=== PATIENT | male | born 1985 | race Caucasian/White ===

== ENCOUNTER → 2021-11-13 08:05 | Outpatient (CLI) | payer OTHER, SELFPAY ==
--- NOTE | 2021-11-13 | DI.RAD.S_ITS ---
PROCEDURE: FL SHOULDER INJECTION MR/CT RT INDICATIONS: Impingement syndrome of right shoulder COMPARISON: None. TECHNIQUE: The indications, alternatives, benefits, risks, and complications of the procedure were explained to the patient. Written informed consent was obtained and placed in the chart. The shoulder was examined fluoroscopically and a site for needle placement chosen for entry into the glenohumeral joint from an anterior approach. The skin was prepped and draped in a sterile fashion, and 1% lidocaine infiltrated from skin down to joint capsule. A spinal needle was inserted into the glenohumeral joint, and a small amount of iodinated contrast media injected to confirm intra-articular placement of the needle tip. This was followed by approximately 12 mL dilute solution of a gadolinium containing MR contrast agent. The needle was removed and a dressing was applied. The patient was given postprocedural instructions and sent to the MR suite for MR imaging. FINDINGS: A single fluoroscopic spot image demonstrates intra-articular location of injected iodinated contrast. IMPRESSION: Successful fluoroscopically guided administration of dilute Gadolinium solution into the shoulder joint for MR arthrogram. Dictated by: Woodrow Lowry M.D. on 11/13/2021 at 9:08 Approved by: Woodrow Lowry M.D. on 11/13/2021 at 9:08
--- NOTE | 2021-11-13 | DI.MRI.S_ITS ---
PROCEDURE: MR SHOULDER RT W CON INDICATIONS: Impingement syndrome of right shoulder TECHNIQUE: After the administration of 12 mL of dilute intra-articular Gadolinium contrast, oblique coronal T1 and T2 spin echo with fat saturation, oblique sagittal T1 spin echo with and without fat saturation, oblique sagittal T2 fast spin echo with fat saturation, axial T1 spin echo with fat saturation through the shoulder. COMPARISON: None. FINDINGS: Image quality: Excellent. Rotator cuff: Mild supraspinatus tendinopathy with interstitial tears. Mild infraspinatus tendinopathy with interstitial and small, partial articular surface tear. The subscapularis tendon is unremarkable. No rotator cuff muscle atrophy on sagittal images. Bones and bursae: No bone marrow contusions or fractures. No acromioclavicular joint degeneration. The acromion demonstrates conventional anatomy, without an os acromiale. Capsule and soft tissues: Superior labral tear at the biceps attachment. The long head of the biceps tendon otherwise demonstrates normal location and morphology. The rotator interval appears normal, without fibrosis. The coracohumeral ligament is of normal thickness. No intra-articular bodies. IMPRESSION: 1. Superior labral tear at the biceps attachment. 2. Supraspinatus tendinopathy with interstitial tears. 3. Infraspinatus tendinopathy with interstitial and small, partial articular surface tear. Dictated by: Nirmal De Santiago M.D. on 11/13/2021 at 10:15 Approved by: Nirmal De Santiago M.D. on 11/13/2021 at 10:17
== END ==
PROVIDERS: Referring Provider Student in an Organized Health Care Education/Training Program; Visit Provider Student in an Organized Health Care Education/Training Program
DX: M75.111 Incomplete rotator cuff tear or rupture of right shoulder, not specified as traumatic (principal); S43.491A Other sprain of right shoulder joint, initial encounter; M75.40 Impingement syndrome of unspecified shoulder
CPT/HCPCS: 23350; 73222; 77002

== ENCOUNTER 2022-07-29 09:35 | Emergency (ER) | payer OTHER, SELFPAY ==
[2022-07-29 09:43] VITALS: BP 133/73; PULSE 62; RESP 16; TEMP 36.6; O2SAT 99; BMI 36.6
--- NOTE | 2022-07-29 09:50 | DI.RAD.S_ITS ---
PROCEDURE: XR HAND LT MIN 3V INDICATIONS: injury to ring and pinky finger TECHNIQUE: 3 views of the hand(s) acquired. COMPARISON: None. FINDINGS: Bones: Mildly displaced, comminuted shaft fracture of proximal phalanx of small finger. Carpal bones are normally aligned. No suspicious bony lesions. Soft tissues: No suspicious soft tissue calcifications. IMPRESSION: Comminuted, mildly displaced shaft fracture of the proximal phalanx of the small finger. Dictated by: Kennedy Castro M.D. on 07/29/2022 at 10:31 Approved by: Kennedy Castro M.D. on 07/29/2022 at 10:33
--- NOTE | 2022-07-29 09:50 | DI.RAD.S_ITS ---
PROCEDURE: XR SHOULDER RT MIN 2V INDICATIONS: Skiing injury TECHNIQUE: 3 views of the shoulder were acquired. COMPARISON: None. FINDINGS: Bones: No fractures or dislocations. There is widening of the distance between the acromion and clavicle, possibly representing AC joint separation. No suspicious bony lesions. Visualized ribs appear intact. Soft tissues: No suspicious soft tissue calcifications. IMPRESSION: Question AC joint separation. Consider AC joint study with and without weight-bearing Dictated by: Kennedy Castro M.D. on 07/29/2022 at 10:30 Approved by: Kennedy Castro M.D. on 07/29/2022 at 10:31
--- NOTE | 2022-07-29 09:56 | ED_ITS ---
HPI - Extremity Injury (Upper) General Chief Complaint: Extremity Injury, Upper Stated Complaint: lt pink pain, rt shldr pain ski Time Seen by Provider: 07/29/22 09:48 Mode of arrival: Family Vehicle History of Present Illness HPI narrative: Patient is a 37-year-old healthy male who presents with right shoulder pain and left hand pain. 2 nights ago he was eat night [place] did not see a ledge went over it landed mostly on his right shoulder. He feels like his right trap has been hurting. He was wearing a helmet he did not lose consciousness. He has no neck pain. No numbness tingling or weakness. No nausea or vomiting. No chest pain. No other complaints at this time. He has an obvious left pinky deformity. No pelvic pain. Related Data Previous Rx's Medication Instructions Recorded cyclobenzaprine 5 mg tablet 5 mg PO TID PRN muscle spasm #10 07/29/22 tabs Allergies Allergy/AdvReac Type Severity Reaction Status Date / Time No Known Drug Allergies Allergy Verified 07/29/22 09:49 Review of Systems Review of Systems ROS Unobtainable: All systems reviewed & are unremarkable except as noted in HPI and below Patient History Social History Smoking Status: Never smoker Smoking Status: Never smoker alcohol intake frequency: a few times a week Substance Use Type: does not use Exam Initial Vital Signs Initial Vital Signs: Vital Signs Temperature 97.8 F 07/29/22 09:43 Pulse Rate 62 07/29/22 09:43 Respiratory Rate 16 07/29/22 09:43 Blood Pressure 133/73 07/29/22 09:43 Pulse Oximetry 99 07/29/22 09:43 Oxygen Delivery Method 07/29/22 09:43 GENERAL: Alert well-appearing 37-year-old male HEENT: Head atraumatic,EOMI, pupils reactive, face symmetric, [moist] mucous membranes NECK: No vertebral tenderness no step-off full range of motion CARDIOVASCULAR: Regular rate and rhythm without murmurs, rubs or gallops. RESPIRATORY: Breath sounds equal bilaterally, no wheezes rales or rhonchi. EXTREMITIES: Normal range of motion, no clubbing or edema. Neurovascularly intact Right shoulder no obvious clavicle step-off or AC separation. Good flexion extension decreased abduction good adduction. Sensation over deltoid intact good distal radial pulse strength equal in right hand Left hand obvious 5th finger done for Medi on able to completely flex there is swelling and contusion. Distal radial pulse intact good cap refill NEUROLOGICAL: Alert and oriented x4.Normal gait and speech. [employer] strength equal bilaterally SKIN: Warm, dry, no laceration, no petechiae, no rashes or lesions. Course Orders Ordered: ED Orders 07/29/22 09:50 XR hand LT min 3V Stat XR shoulder RT min 2V Stat Discontinued Medications Ibuprofen (Ibuprofen 400 Mg Tablet) 800 mg PO NOW ONE Stop: 07/29/22 12:26 Last Admin: 07/29/22 12:25 Dose: 800 mg Documented By: CINTIA Vital Signs Vital signs: Vital Signs - 8 hr 07/29/22 12:29 Temperature 98 F Pulse Rate 75 Respiratory Rate 18 Blood Pressure 120/75 Pulse Oximetry 98 Oxygen Delivery Method Room Air MDM - Extremity Injury (Upper) Imaging Data Extremity x-ray #1: Radiologist's Impression: Signed Patient: Robinson Gauthier MR#: [id number] : 1985 Acct:[id number] Age/Sex: 37 / M Date of Service: 07/29/22 Loc: ED Accession Number: [id number] ?? Procedure: XR hand LT min 3V Ordering Provider: Loraine Field D.O. PROCEDURE:? XR HAND LT MIN 3V ? INDICATIONS:? injury to ring and pinky finger ? TECHNIQUE:? 3 views of the hand(s) acquired.? ? COMPARISON:? None. ? FINDINGS:? ? Bones:? Mildly displaced, comminuted shaft fracture of proximal phalanx of small finger.? Carpal bones are normally aligned.? No suspicious bony lesions.? ? Soft tissues:? No suspicious soft tissue calcifications.? ? ? IMPRESSION:? Comminuted, mildly displaced shaft fracture of the proximal phalanx of the small finger. ? ? Dictated by: Kennedy Castro M.D. on 07/29/2022 at 10:31 ? Extremity x-ray #2: Radiologist's Impression: Signed Patient: Robinson Gauthier MR#: [id number] : 1985 Acct:[id number] Age/Sex: 37 / M Date of Service: 07/29/22 Loc: ED Accession Number: [id number] ?? Procedure: XR shoulder RT min 2V Ordering Provider: Loraine Field D.O. PROCEDURE:? XR SHOULDER RT MIN 2V ? INDICATIONS:? Skiing injury ? TECHNIQUE:? 3 views of the shoulder were acquired.? ? COMPARISON:? None. ? FINDINGS:? ? Bones:? No fractures or dislocations.? There is widening of the distance between the acromion and clavicle, possibly representing AC joint separation.? No suspicious bony lesions.? Visualized ribs appear intact.? ? Soft tissues:? No suspicious soft tissue calcifications.? ? IMPRESSION:? Question AC joint separation.? Consider AC joint study with and without weight-bearing ? ? Dictated by: Kennedy Castro M.D. on 07/29/2022 at 10:30 ? ? Approved by: Kennedy Castro M.D. on 07/29/2022 at 10:31 ? MDM Narrative Medical decision making narrative: Patient is a 37-year-old male who had ski related injury 2 days ago. He has an obvious deformity to his left pinky confirmed by x-ray with a fractured proximal phalanx. Good cap refill. Shoulders intact. He does not have any head injury signs or symptoms. No need for any further imaging at this time. Finger is splinted recommend follow-up with orthopedics. MDM * differential diagnosis includes but not limited to: Fracture sprain contusion * Prior records reviewed: No * My lab interpretation: No * My imaging interpretation: Fractured 5th proximal finger as above * Clinical Decision Rules/Scores evaluated: No * Independent discussions with: No one * Social Considerations: No * Shared Decision Making: Patient and *Disposition: see below, along with detailed discharge instructions that have been reviewed with patient as well as indications for ED re-evaluation and additional outpatient follow up Discharge Plan Departure Patient Disposition: Home Clinical Impression: Closed fracture of phalanx of left little finger Acromioclavicular joint separation Qualifiers: Encounter type: initial encounter Laterality: right Qualified Code(s): S43.101A - Unspecified dislocation of right acromioclavicular joint, initial encounter Instructions: Finger Fracture, AC Joint Separation Activity Restrictions/Additional Instructions: *You have been diagnosed with left little finger fracture and right AC separation *What to do: At this time keep finger splinted at all times. You will need to follow-up with orthopedics he is occasionally do get surgery. Elevate and ice as needed. *Continue to take medications as directed Flexeril 5 mg every 8 hours if needed for muscle spasm this does cause drowsiness use with caution Motrin 600 mg every 6 hours if needed for [id number] pain Tylenol 1000 mg every 6 hours if needed for [id number]-[id number] pain *Follow up with your primary care provider in 2-3 days or call [phone] *Return to ER if you should have increasing numbness tingling swelling pain or any new, worsening or concerning symptoms Prescriptions: New cyclobenzaprine 5 mg tablet 5 mg PO TID PRN (Reason: muscle spasm) Qty: 10 0RF Referrals: ProviderTonia [Primary Care Provider] - Stand Alone Forms: Patient Portal/API
[2022-07-29] MEDS: IBUPROFEN 400 MG TABLET 800 MG PO (12:25)
[2022-07-29 12:29] VITALS: BP 120/75; PULSE 75; RESP 18; TEMP 36.6; O2SAT 98
== END 2022-07-29 12:29 | disposition home or self-care (01) ==
PROVIDERS: Emergency Provider Emergency Medicine
DX: S62.617A Displaced fracture of proximal phalanx of left little finger, initial encounter for closed fracture (principal); S43.101A Unspecified dislocation of right acromioclavicular joint, initial encounter; W17.89XA Other fall from one level to another, initial encounter; Y93.23 Activity, snow (alpine) (downhill) skiing, snowboarding, sledding, tobogganing and snow tubing
CPT/HCPCS: 73030; 73130; 99283

== ENCOUNTER → 2024-02-12 08:49 | Outpatient (CLI) | payer OTHER, SELFPAY ==
--- NOTE | 2024-02-12 08:53 | DI.MRI.S_ITS ---
PROCEDURE: MR KNEE RT WO CON INDICATIONS: RIGHT KNEE INJURY W SUSP.MENISCAL TEAR TECHNIQUE: Noncontrast sagittal PD fast spin echo and T2 fast spin echo with fat saturation, sagittal 3-D FLASH with fat saturation; coronal T1 spin echo and PD fast spin echo with fat saturation, and axial PD fast spin echo with fat saturation through the knee. COMPARISON: None. FINDINGS: Image quality: Diagnostic Menisci: Medial: Complex primarily horizontal and oblique tear of the medial meniscus, extending to the inferior articulating surface and the root. The root is still attached. Lateral: Tiny horizontal tear versus degenerative surface fibrillation at the periphery. Cruciate ligaments: Intact Medial structures: MCL: Intact Pes anserine tendons: Intact Semimembranosus: Intact Lateral structures: LCL: Intact Biceps femoris: Mild insertional tendinopathy IT band: Intact Popliteus tendon: Intact Anterior structures: Extensor mechanism: Intact Fat pads: Mild prepatellar and Hoffa's fat pad edema Medial retinaculum: Intact. Trochlea: Unremarkable morphology. Bone and joint: Bones: No fracture, dislocation, or suspicious edema Cartilage: Mild surface heterogeneity without significant defect. Joint space: Small joint effusion Ching's cyst: None Soft tissues: No significant vascular or other soft tissue pathology. IMPRESSION: Complex medial meniscus tear. Intact collateral and cruciate ligaments. Small joint effusion and mild edema in the prepatellar space and Hoffa's fat pad. Dictated by: Henri Covarrubias M.D. on 02/13/2024 at 9:09 Approved by: Henri Covarrubias M.D. on 02/13/2024 at 9:12
== END ==
PROVIDERS: Referring Provider Student in an Organized Health Care Education/Training Program; Visit Provider Student in an Organized Health Care Education/Training Program
DX: S83.231A Complex tear of medial meniscus, current injury, right knee, initial encounter (principal); S89.91XA Unspecified injury of right lower leg, initial encounter; M25.461 Effusion, right knee; X58.XXXA Exposure to other specified factors, initial encounter
CPT/HCPCS: 73721

== ENCOUNTER 2024-07-18 19:28 | Emergency (ER) | payer OTHER, SELFPAY ==
[2024-07-18] VITALS (10 sets, daily range): BP systolic 136–156; BP diastolic 67–96; PULSE 59–73; RESP 14–22; TEMP 36.6–36.8; O2SAT 93–98; BMI 35.2
--- NOTE | 2024-07-18 19:41 | EKG_ITS ---
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
--- NOTE | 2024-07-18 19:41 | DI.RAD.S_ITS ---
PROCEDURE: XR CHEST 1V INDICATIONS: chest pain TECHNIQUE: One view of the chest was acquired. COMPARISON: None. FINDINGS: Surgical changes and devices: None. Lungs and pleura: Lung volumes are slightly low, but otherwise lungs are clear. No pleural effusions or pneumothorax. Mediastinum: Mediastinal contours appear normal. Heart size is normal. Bones and chest wall: No suspicious bony lesions. Overlying soft tissues appear unremarkable. IMPRESSION: Slightly low lung volumes, but otherwise lungs are clear. Approved by: Hafsa Escudero M.D.,Ph.D. on 07/18/2024 at 20:11
--- NOTE | 2024-07-18 19:59 | PC.NURSE ---
pt states he was walking up the stairs when he started having c/o and just didn't feel right states he told his I feel like if I go to sleep tonight I will not wake up pt states he has never felt this way before does not have any hx, pain does not radiate pt also c/o sob, pt speaking in complete sentences resp even and unlabored with no distress noted
[2024-07-18] MEDS: ASPIRIN 81 MG CHEW TAB 324 MG PO (20:00)
[2024-07-18 20:15] LABS: Alanine Aminotransferase 129 IU/L (<50); Albumin 4.9 g/dL (3.5-5.0); Albumin Globulin Ratio 1.6 (1.0-2.8); Alkaline Phosphatase 56 U/L (38-126); Aspartate Aminotransferase 93 IU/L (17-59); BUN Creatinine Ratio 13.4 (6-22); Bilirubin Total 0.8 mg/dL (0.2-1.3); Blood Urea Nitrogen 15 mg/dL (9-20); Calcium 9.5 mg/dL (8.4-10.2); Carbon Dioxide 30 mmol/L (22-32); Chloride 99 mmol/L (98-107); Creatine Kinase 271 U/L (55-170); Estimated Glomerular Filt Rate > 60 mL/min (>60); Globulin 3.1 g/dL (1.7-4.1); Glucose 112 mg/dL (70-100); HEMOLYSIS 19 (0-50); Lipase 233 U/L (23-300); Magnesium 1.7 mg/dL (1.6-2.3); Potassium 3.9 mmol/L (3.4-5.1); Sodium 135 mmol/L (137-145)
[2024-07-18 20:19] LABS: Add Manual Diff / Slide Review NO; Basophils Absolute Auto 100 /uL (0-100); Basophils Percent Auto 0.9 % (0-2); Eosinophils Absolute Auto 100 /uL (0-450); Eosinophils Percent Auto 1.4 % (2-4); Hematocrit 43.7 % (41-53); Hemoglobin 15.3 g/dL (13.5-17.5); Lymphocytes Absolute Auto 2000 /uL (1100-4500); Lymphocytes Percent Auto 25.1 % (25-40); Mean Corpuscular HGB Conc 34.9 % (30-36); Mean Corpuscular Hemoglobin 30.2 PG (26-34); Mean Corpuscular Volume 86.3 fL (80-100); Monocytes Absolute Auto 700 /uL (0-900); Monocytes Percent Auto 8.4 % (3-14); Neutrophils Absolute Auto 5100 /uL (1500-7000); Neutrophils Percent Auto 64.2 % (50-75); Platelet Count 202 X10^3/uL (150-400); Red Blood Cell Count 5.06 X10^6/uL (4.5-5.9); Red Cell Distribution Width 13.5 % (11.6-14.8); White Blood Cell Count 7.9 X10^3/uL (4.5-11.0)
[2024-07-18 20:22] LABS: Prothrombin Time 11.3 SECONDS (9.4-12.5)
[2024-07-18 20:25] LABS: PTT Partial Thromboplastin Tim 33 SECONDS (25.1-36.5)
[2024-07-18 20:26] LABS: NT-proBNP (BNP-Adult 18+) < 20 pg/mL (<125); Troponin I < 0.012 ng/mL (0.01-0.034)
--- NOTE | 2024-07-18 20:39 | ED.CHESTPAIN ---
HPI - Chest Pain General Chief Complaint: Chest Pain Stated Complaint: sob, tightness in chest Time Seen by Provider: 07/18/24 19:42 Source: patient Mode of arrival: Family Vehicle Limitations: no limitations History of Present Illness HPI narrative: Patient is a 39-year-old male who is here for evaluation when he describes as tightness in his chest and shortness of breath. No cough. No fevers. No chest pain. No nausea vomiting or abdominal pain. No lower extremity swelling. Symptoms have been present for the past 12-24 hours. No recent travel. He states that it just feels like he can take a deep breath. Related Data Previous Rx's Medication Instructions Recorded cyclobenzaprine 5 mg tablet 5 mg PO TID PRN muscle spasm #10 07/29/22 tabs Allergies Allergy/AdvReac Type Severity Reaction Status Date / Time No Known Drug Allergies Allergy Verified 07/18/24 19:50 Review of Systems Review of Systems ROS Unobtainable: All systems reviewed & are unremarkable except as noted in HPI and below Patient History Social History Smoking Status: Never smoker Smoking Status: Never smoker alcohol intake frequency: a few times a week Exam Initial Vital Signs Initial Vital Signs: Vital Signs Temperature 98.3 F 07/18/24 19:39 Pulse Rate 70 07/18/24 19:39 Respiratory Rate 16 07/18/24 19:39 Blood Pressure 156/91 H 07/18/24 19:39 Pulse Oximetry 98 07/18/24 19:39 Oxygen Delivery Method Room Air 07/18/24 19:39 Const General: cooperative, comfortable and No ill appearing [facility] Head: normal to inspection and normocephalic Resp Effort & Inspection: normal respiratory effort, no cough and not tachypneic Auscultation: clear to auscultation bilaterally, no rhonchi and no wheezes Cardio Rate: regular rate Rhythm: regular rhythm GI Inspection: normal to inspection Skin General: no rashes or lesions noted Neuro General: patient alert, patient awake and moves all extremities Extrem General: normal to inspection Scores PERC Score Age greater than or equal to 50 years: No Heart rate greater than or equal to 100 bpm: No Room Air O2 Sat less than 95%: No Unilateral leg swelling: No Recent trauma or surgery: No Hemoptysis: No Prior PE or DVT: No Hormone Use: No Total PERC Score: 0 Course Orders Ordered: ED Orders 07/18/24 19:41 XR chest 1V Stat EKG-12 Lead Stat 07/18/24 19:50 Complete Blood Count AUTO DIFF Stat Comprehensive Metabolic Panel Stat Lipase Stat Magnesium Stat NT-proBNP (BNP-Adult 18+) Stat PTT Partial Thromboplastin Franko Stat Prothrombin Time INR Stat Troponin & CK Cardiac Panel Stat 07/18/24 20:55 Covid-19 + FLU A/B + RSV - PCR Stat Discontinued Medications Aspirin (Aspirin 81 Mg Chew Tab) 324 mg PO NOW ONE Stop: 07/18/24 19:42 Last Admin: 07/18/24 20:00 Dose: 324 mg Documented By: Vital Signs Vital signs: Vital Signs - 8 hr 07/18/24 19:39 07/18/24 19:44 07/18/24 19:45 Temperature 98.3 F Pulse Rate 70 70 Respiratory Rate 16 Blood Pressure 156/91 H 156/91 H Pulse Oximetry 98 98 Oxygen Delivery Method Room Air 07/18/24 19:47 07/18/24 19:47 07/18/24 20:00 Temperature Pulse Rate 73 66 Respiratory Rate 14 19 Blood Pressure 156/96 H Pulse Oximetry 98 96 Oxygen Delivery Method 07/18/24 20:00 07/18/24 20:30 07/18/24 21:00 Temperature Pulse Rate 70 61 Respiratory Rate 17 Blood Pressure 147/83 H Pulse Oximetry 93 95 Oxygen Delivery Method 07/18/24 21:30 07/18/24 22:00 07/18/24 22:09 Temperature 97.9 F Pulse Rate 59 L 68 Respiratory Rate 15 22 Blood Pressure 136/67 Pulse Oximetry 94 95 Oxygen Delivery Method MDM - Chest Pain Lab Data Attestation: I reviewed the patient's lab results. 07/18/24 19:50 07/18/24 19:50 Labs: Lab Results 07/18/24 07/18/24 Range/Units 19:50 20:55 WBC 7.9 (4.5-11.0) X10^3/uL RBC 5.06 (4.5-5.9) X10^6/uL Hgb 15.3 (13.5-17.5) g/dL Hct 43.7 (41-53) % MCV 86.3 (80-100) fL MCH 30.2 (26-34) PG MCHC 34.9 (30-36) % RDW 13.5 (11.6-14.8) % Plt Count 202 (150-400) X10^3/uL Neut % (Auto) 64.2 (50-75) % Lymph % (Auto) 25.1 (25-40) % [place]eman % (Auto) 8.4 (3-14) % Eos % (Auto) 1.4 L (2-4) % Baso % (Auto) 0.9 (0-2) % Neut # (Auto) 5100 (2341-1292) /uL Lymph # (Auto) 2000 (1561-8969) /uL [place]eman # (Auto) 700 (0-900) /uL Eos # (Auto) 100 (0-450) /uL Baso # (Auto) 100 (0-100) /uL PT 11.3 (9.4-12.5) SECONDS INR 1.0 (0.9-1.3) APTT 33 (25.1-36.5) SECONDS Sodium 135 L (137-145) mmol/L Potassium 3.9 (3.4-5.1) mmol/L Chloride 99 (98-107) mmol/L Carbon Dioxide 30 (22-32) mmol/L BUN 15 (9-20) mg/dL Creatinine 1.12 (0.66-1.25) mg/dL Estimated GFR > 60 (>60) mL/min BUN/Creatinine Ratio 13.4 (6-22) Glucose 112 H (70-100) mg/dL Calcium 9.5 (8.4-10.2) mg/dL Magnesium 1.7 (1.6-2.3) mg/dL Total Bilirubin 0.8 (0.2-1.3) mg/dL AST 93 H (17-59) IU/L ALT 129 H (<50) IU/L Alkaline Phosphatase 56 (38-126) U/L Total Creatine Kinase 271 H (55-170) U/L Troponin I < 0.012 (0.01-0.034) ng/mL NT-Pro-B Natriuret Pep < 20 (<125) pg/mL Total Protein 8.0 (6.3-8.2) g/dL Albumin 4.9 (3.5-5.0) g/dL Globulin 3.1 (1.7-4.1) g/dL Albumin/Globulin Ratio 1.6 (1.0-2.8) Lipase 233 (23-300) U/L SARS-CoV-2 (PCR) Negative (Negative) Influenza A (RT-PCR) Flu a negative (NEGATIVE) Influenza B (RT-PCR) Flu b negative (NEGATIVE) RSV (PCR) Negative (Negative) Urine Dip Bedside Urine Glucose Negative Bedside Urine Bilirubin - Negative Bedside Urine Ketone - Negative Urine Specific [place] 1.010 Bedside Urine Occult Blood - Negative Bedside Urine pH 6.5 Bedside Urine Protein - Negative Bedside Urine Urobilinogen - Negative Bedside Urine Nitrite - Negative Bedside Urine Leukocytes - Negative Esterase Imaging Data Chest x-ray: Radiologist's Impression: PROCEDURE: XR CHEST 1V INDICATIONS: chest pain TECHNIQUE: One view of the chest was acquired. COMPARISON: None. FINDINGS: Surgical changes and devices: None. Lungs and pleura: Lung volumes are slightly low, but otherwise lungs are clear. No pleural effusions or pneumothorax. Mediastinum: Mediastinal contours appear normal. Heart size is normal. Bones and chest wall: No suspicious bony lesions. Overlying soft tissues appear unremarkable. IMPRESSION: Slightly low lung volumes, but otherwise lungs are clear. ECG Data Attestation: I personally reviewed and interpreted this ECG as follows: Interpretation: Sinus rhythm Ventricular rate is 70 Normal axis Normal QRS Normal QTC Nonspecific ST T wave changes MDM Narrative Medical decision making narrative: Chest x-ray does not show any signs of pneumonia. PERC score is negative. Low suspicion for ACS. COVID/flu negative. No other indication this is an infection. Patient was not hypoxic. Not tachypneic. Not tachycardic. He was not in heart failure. I discussed all this with the patient. Provided reassurance and will hold on further workup in the emergency department for now. He was given return precautions and follow-up instructions. He expressed understanding and agreement with the plan. Discharge Plan Departure Patient Disposition: Home Clinical Impression: Shortness of breath Instructions: DI for Shortness of Breath Activity Restrictions/Additional Instructions: Your workup here in the emergency department is very reassuring. Recommend that you contact your primary care doctor for a follow-up. Return to the emergency department for new symptoms. Prescriptions: No Action cyclobenzaprine 5 mg tablet 5 mg PO TID PRN (Reason: muscle spasm) Qty: 10 0RF Referrals: ProviderTonia [Primary Care Provider] - Stand Alone Forms: Patient Portal/API/Survey
[2024-07-18 21:47] LABS: Influenza A - CEPHEID Flu A NEGATIVE (NEGATIVE); Influenza B - CEPHEID Flu B NEGATIVE (NEGATIVE); Respiratory Syncytial Virus Negative (Negative)
[2024-07-18 21:49] LABS: COVID-19 CEPHEID 4-PLEX PCR Negative (Negative)
== END 2024-07-18 22:11 | disposition home or self-care (01) ==
PROVIDERS: Emergency Provider Emergency Medicine
DX: R06.02 Shortness of breath (principal); R07.9 Chest pain, unspecified
CPT/HCPCS: 0241U; 36415; 71045; 80053; 81003; 82550; 83690; 83735; 83880; 84484; 85025; 85610; 85730; 93005; 99284

== ENCOUNTER → 2024-12-21 17:13 | Outpatient (CLI) | payer OTHER, SELFPAY ==
--- NOTE | 2024-12-21 17:15 | DI.MRI.S_ITS ---
PROCEDURE: MR ELBOW RT WO CON INDICATIONS: RT ELBOW PAIN TECHNIQUE: Noncontrast coronal proton density fast spin echo and T2 fast spin echo with fat saturation, axial and sagittal T1 spin echo and T2 fast spin echo with fat saturation through the elbow. COMPARISON: None. FINDINGS: Image quality: Excellent. Lateral structures: The lateral ulnar collateral ligament and radial collateral ligament both appear intact. Mild tendinosis of the common extensor tendon origin, without tear. Medial structures: The ulnar collateral ligament appears intact. The overlying common flexor tendon appears normal. The ulnar nerve appears normal in size and signal within the cubital tunnel. Anterior structures: Full-thickness tear of the distal biceps tendon at the radial tuberosity, with 7.5 cm superior tendon retraction, to the level of the distal humerus. The distal biceps tendon is redundant and quad at the level of the distal humerus. The brachialis tendon is intact. The median and radial neurovascular bundles appear normal; no focal muscle atrophy to suggest nerve impingement. Posterior structures: The conjoint triceps tendon from the long and lateral heads appears intact. The medial head of the triceps tendon also appears normal, with direct muscle insertion onto the olecranon. No olecranon bursal fluid. Bone and cartilage: No bone marrow contusions or fractures. No osteochondral injuries. IMPRESSION: 1. Full-thickness tear of the distal biceps tendon at the radial tuberosity, with marked superior tendon retraction to the level of the distal humerus. 2. Mild tendinosis of the common extensor tendon origin, without tear. Dictated by: Michelle Pate M.D. on 12/22/2024 at 11:27 Approved by: Michelle Pate M.D. on 12/22/2024 at 11:34
== END ==
LOC: MRI 17:13
PROVIDERS: Referring Provider Student in an Organized Health Care Education/Training Program; Visit Provider Student in an Organized Health Care Education/Training Program
DX: S46.211A Strain of muscle, fascia and tendon of other parts of biceps, right arm, initial encounter (principal); X58.XXXA Exposure to other specified factors, initial encounter
CPT/HCPCS: 73221

== ENCOUNTER 2025-03-26 09:21 | Emergency (ER) | payer OTHER, SELFPAY ==
[2025-03-08 19:27] VITALS: BMI 29.2
[2025-03-26 09:31] VITALS: BP 155/72; PULSE 70; RESP 16; TEMP 36.7; O2SAT 98; BMI 36.8
--- NOTE | 2025-03-26 09:37 | ED_ITS ---
HPI - Skin/Abscess/Foreign Bdy General Chief complaint: Extremity Injury, Upper Stated complaint: infection in hand, abx finished, swelling returned Time Seen by Provider: 03/26/25 09:35 Source: patient Mode of arrival: Ambulatory Limitations: no limitations History of Present Illness HPI narrative: Patient is a 39-year-old male presents with right index finger redness and swelling. Patient initially March 08 after he had gotten poked by a rhonda fishing hook, he was seen and evaluated started on doxycycline, came back as he had increased swelling was admitted for 4 days evaluated by ortho had MRI and CT done ultimately discharged home on doxycycline and Levaquin for 1 week. He finished those 5 days ago. Last night he felt it get a little bit more swollen this morning he notes that it is swollen and red but significantly better than what it was. He still has full range of movement no streaking. He has no significant pain he just wants to get started back on antibiotics. Related Data Previous Rx's ?Medication ?Instructions ?Recorded oxycodone 5 mg tablet 5 mg PO BID PRN pain #6 tabs 03/11/25 doxycycline hyclate 100 mg capsule 100 mg PO BID #14 c aps 03/26/25 levofloxacin 750 mg tablet 750 mg PO DAILY 7 days #7 t abs 03/26/25 Allergies Allergy/AdvReac Type Severity Reaction Status Date / Time vancomycin AdvReac Mild ITCHING Verified 03/26/25 09:31 Patient History Social History household members: spouse and children alcohol intake: current tobacco type: smokeless tobacco alcohol intake frequency: a few times a week Exam Initial Vital Signs Initial Vital Signs: Vital Signs Temperature 98.0 F 03/26/25 09:31 Pulse Rate 70 03/26/25 09:31 Respiratory Rate 16 03/26/25 09:31 Blood Pressure 155/72 H 03/26/25 09:31 Pulse Oximetry 98 03/26/25 09:31 Oxygen Delivery Method Room Air 03/26/25 09:31 GENERAL: Well-appearing, well-nourished and in no acute distress. CARDIOVASCULAR: peripheral pulses in tact, cap refill <2 sec RESPIRATORY: No respiratory distress, speaks in full sentences without difficulty EXTREMITIES: Normal range of motion, no clubbing or edema. Neurovascularly intact Right hand index finger is definitely more swollen he reports that it went back to normal he does have some redness he has full flexion and extension of finger cap refill less than 2 seconds more red and swollen proximally than distally. NEUROLOGICAL: Cranial nerves II through XII grossly intact. Normal gait and speech. SKIN: Warm, dry, no petechiae, no rashes or lesions. Course Orders Ordered: Discontinued Medications Doxycycline Hyclate (Doxycycline Hyclate 100 Mg Tablet) 100 mg PO NOW ONE Stop: 03/26/25 10:03 Last Admin: 03/26/25 10:08 Dose: 100 mg Documented By: Levofloxacin (Levofloxacin 250 Mg Tablet) 750 mg PO NOW ONE Stop: 03/26/25 10:03 Last Admin: 03/26/25 10:08 Dose: 750 mg Documented By: Vital Signs Vital signs: Vital Signs - 8 hr 03/26/25 09:31 03/26/25 10:11 Temperature 98.0 F 98.0 F Pulse Rate 70 69 Respiratory Rate 16 16 Blood Pressure 155/72 H 155/78 H Pulse Oximetry 98 100 Oxygen Delivery Method Room Air Room Air MDM - Skin/Abscess/Foreign Bdy MDM Narrative Medical decision making narrative: Patient 39-year-old male presenting today with right index finger swelling and redness. Had recent hospitalization complicated infection. Was never diagnosed with flexor tendon synovitis. It was presumed a vibrio infection failed Rocephin and doxycycline had a reaction to vancomycin changed over to daptomycin and Cipro. Discussion with patient about repeating blood work imaging however at this time he appears well nontoxic would like to hold off those things restart antibiotics. If symptoms worsen he will come back and have further testing and evaluation. At this time I think I would restart him on the same antibiotics of Levaquin and doxy. He really has full range of motion no concern for flexor tendon synovitis no concern for abscess he is afebrile. He is responsible and will return if needed. Discharge Plan Departure Patient Disposition: Home Clinical Impression: Cellulitis of finger of right hand Instructions: Cellulitis Activity Restrictions/Additional Instructions: *You have been diagnosed with right finger cellulitis *What to do: At this time we will restart the same antibiotics you were on however please monitor very closely *Continue to take medications as directed Doxycycline 100 mg twice a day Levaquin 750 once daily *Follow up with your primary care provider in 2-3 days or call [phone] *Return to ER if you should have increasing redness swelling pain inability to move finger [or] any new, worsening or concerning symptoms Prescriptions: New doxycycline hyclate 100 mg capsule 100 mg PO BID Qty: 14 0RF levofloxacin 750 mg tablet 750 mg PO DAILY 7 Days Qty: 7 0RF No Action oxycodone 5 mg tablet 5 mg PO BID PRN (Reason: pain) Qty: 6 0RF Referrals: ProviderTonia [Primary Care Provider, Family Practice] Stand Alone Forms: Patient Portal/API
[2025-03-26] MEDS: DOXYCYCLINE HYCLATE 100 MG TABLET PO (10:08)
[2025-03-26 10:11] VITALS: BP 155/78; PULSE 69; RESP 16; TEMP 36.7; O2SAT 100
== END 2025-03-26 10:12 | disposition home or self-care (01) ==
PROVIDERS: Emergency Provider Emergency Medicine
DX: L03.011 Cellulitis of right finger (principal)
CPT/HCPCS: 99283